=== PATIENT | female | born 2005 | race Caucasian/White ===

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

== ENCOUNTER 2025-02-11 16:37 | Emergency (ER) | payer MEDICAID, SELFPAY ==
[2025-02-11 16:43] VITALS: BP 117/74; PULSE 108; RESP 18; TEMP 36.5; O2SAT 97
--- NOTE | 2025-02-11 18:14 | W.ED.GENAD ---
Discharge Plan Disposition Patient Disposition: Home Condition: Stable Discharge Details Clinical Impression: , Nausea Primary Care Provider: Luz Johnson ED Provider: Harrison Lo [place] Meds and New Rx's Prescriptions: New ondansetron 4 mg tablet,disintegrating 4 mg PO Q8H PRN (Reason: nausea and vomiting) Qty: 10 0RF Continued loratadine [Claritin] 10 mg tablet 10 mg PO DAILY Qty: 60 1RF Patient Comments: not currently taking albuterol sulfate [ProAir HFA] 90 mcg/actuation HFA aerosol inhaler 2 puff IH Q4H PRN (Reason: shortness of breath or wheezing) Qty: 8.5 1RF budesonide-formoterol [Symbicort] 80-4.5 mcg/actuation HFA aerosol inhaler 2 puff inhalation BID Gummies 400 mcg-35 mg- 25 mg-5 mg tablet,chewable PO epinephrine [EpiPen 2-Kenneth] 0.3 mg/0.3 mL auto-injector 0.3 mg IM ONCE Qty: 4 1RF fluoxetine [Prozac] 10 mg capsule See Rx Instructions .ROUTE .COMPLEX Qty: 60 0RF Patient Comments: not currently taking Rx Instructions: 1 capsule by mouth once daily x 14 days; then increase to 2 capsules by mouth once daily Discharge Instructions Instructions: symptoms Discharge Data Discharge Physician: Harrison Lo [facility] General Date/Time Provider Initiated Documentation: 02/11/25 16:53. HPI Narrative: Patient presents to the emergency department stating that she has been nauseous for the last 4 days unable to eat or drink feels dehydrated. Denies any vomiting or diarrhea. Related Data Home Medications ?Medication ?Instructions ?Recorded ?Confirmed albuterol sulfate 90 mcg/actuation 2 puff inhalation Q4H PRN 03/08/20 02/11/25 aerosol inhaler (ProAir HFA) shortness of breath or wheezing #8.5 grams loratadine 10 mg tablet (Claritin) 10 mg PO DAILY #60 tabs 03/08/20 02/11/25 budesonide-formoterol HFA 80 2 puff inhalation BID 09/01/20 02/11/25 mcg-4.5 mcg/actuation aerosol inhaler (Symbicort) epinephrine 0.3 mg/0.3 mL 0.3 mg (0.3 mL) IM ONCE #4 ea 12/27/21 02/11/25 injection, auto-injector (EpiPen 2-Kenneth) fluoxetine 10 mg capsule (Prozac) See Rx Instructions .Route 05/22/22 02/11/25 .COMPLEX #60 caps PNV 153-FA 400 mcg-om3 35 mg-dha tab PO 04/03/23 04/03/23 25 mg-epa 5 mg-fish oil chew tablet ( Gummies) ondansetron 4 mg disintegrating 4 mg PO Q8H PRN nausea and 02/11/25 tablet vomiting #10 tabs Previous Rx's ?Medication ?Instructions ?Recorded albuterol sulfate 90 mcg/actuation 2 puff inhalation Q4H PRN 03/08/20 aerosol inhaler (ProAir HFA) shortness of breath or wheezing #8.5 grams loratadine 10 mg tablet (Claritin) 10 mg PO DAILY #60 tabs 03/08/20 epinephrine 0.3 mg/0.3 mL 0.3 mg (0.3 mL) IM ONCE #4 ea 12/27/21 injection, auto-injector (EpiPen 2-Kenneth) fluoxetine 10 mg capsule (Prozac) See Rx Instructions .Route 05/22/22 .COMPLEX #60 caps ondansetron 4 mg disintegrating 4 mg PO Q8H PRN nausea and 02/11/25 tablet vomiting #10 tabs Allergies Allergy/AdvReac Type Severity Reaction Status Date / Time beef derived (bovine) Allergy Severe Anaphylaxsi Verified 02/11/25 16:49 s peanut Allergy Severe Anaphylaxsi Verified 02/11/25 16:49 s tree nut Allergy Severe Skin Rash Verified 02/11/25 16:49 General Stated Complaint: GenMedical MAYKEL: 3 Review of Systems Narrative: Review of Systems: Constitutional: No fevers, chills, sweats Eye: No recent visual problems ENT: No ear pain, nasal congestion, sore throat Respiratory: No shortness of breath, cough Cardiovascular: No Chest pain, palpitations, syncope Gastrointestinal: No vomiting, diarrhea Genitourinary: No hematuria Bowen/Lymph: Negative for bruising tendency, swollen lymph glands Endocrine: Negative for excessive thirst, excessive hunger Musculoskeletal: No back pain, neck pain, joint pain, muscle pain, decreased range of motion Integumentary: No rash, pruritus, abrasions Neurologic: Alert & oriented X 4 Psychiatric: No anxiety, depression Exam Narrative Exam Narrative: Exam; vitals signs as reported above normal Constitutional; In no acute distress, afebrile General: cooperative, healthy appearing, comfortable and no acute distress HEENT: Head: normal to inspection, no palpable skull fracture and normocephalic atraumatic Eyes: : appearance normal, both eyes and all related structures EOM intact bilaterally Pupils: PERRL : conjunctiva normal Direct ophthalmoscopy: normal light reflex, normal conjunctiva, normal visual acuity Ears: Normal TM, normal external canal Nose: normal no rhinorreha Neck no JVD, supple non tender Neck: normal visual inspection, full ROM and no lymphadenopathy Chest: normal inspection of the chest Respiratory : normal respiratory effort and able to speak in complete sentences no wheezing no rales Cardio Rate: regular rate, rhythm: regular rhythm normal heart sounds S1 and S2 no murmurs, gallops, or rubs GI : normal to inspection, normal bowel sounds, soft, non tender, non distended, no organomegaly Back/Spine/ no CVA tenderness Thoracic/Lumbar Spine: no tenderness or deformities Skin no rashes or lesions Neuro: patient alert oriented x 4 and no meningeal signs, Cranial Nerves: CN's II-XI intact bilaterally, Cognition: normal cognition, Speech: speech normal, Gait: normal gait, Depp tendon reflexes normal 2+ muscle strength 5/5 bilaterally Extremities, no edema, full range of motion, normal strength Course Vital Signs Vital signs: Vital Signs Temperature 36.5 C 02/11/25 16:43 Pulse 108 H 02/11/25 16:43 Respiratory Rate 18 02/11/25 16:43 Blood Pressure 117/74 02/11/25 16:43 Pulse Oximetry 97 02/11/25 16:43 Temperature 36.5 C 02/11/25 16:43 Temperature Source Tympanic 02/11/25 16:43 Pulse 108 H 02/11/25 16:43 Respiratory Rate 18 02/11/25 16:43 Blood Pressure 117/74 02/11/25 16:43 Pulse Oximetry 97 02/11/25 16:43 Oxygen Delivery Method Room Air 02/11/25 16:43 Oxygen Flow Rate 0 02/11/25 16:43 Pain Level 0 02/11/25 16:43 Medical Decision Making MDM: Summary: Patient presents emergency department states she has been nauseous for the last week and although she states she only had sexual intercourse with her boyfriend once in the last month she tested positive for . The rest of the labs were unremarkable she received IV fluids and Zofran with improvement. She will be discharged on Zofran and will go to her OB for care. Data Review Analysis All the data on this patient was reviewed by me including laboratory and imaging studies as well as bedside studies performed by me Independent review of Studies Imaging Lab: Labs show positive for Risk Stratification: Patient with early nausea who will be discharged with follow-up with her OB Differential Diagnosis: 1. 2. Enteritis 3. 4. 5. Consultants: Shared disposition: Patient stands disposition will follow accordingly Impression: Lab Data Lab results reviewed: Yes I reviewed the patient's lab results. PFSH All Active Problems (Updated 02/11/25 @ 20:43 by Harrison Lo MD) Nausea (Acute) (Acute) Loss of biological parent at younger than 18 years of age (Acute) Unresolved grief (Acute) PTSD (post-traumatic stress disorder) (Chronic) With depressive features and non-specific suicidal ideations; PTSD secondary to mom being sick with cancer for many years and then passing in 2014 when Deann was 9 years old Insomnia (Chronic) Moderate persistent asthma (Chronic) Followed by [facility] Peanut allergy (Chronic) Eczema (Chronic) Dysmenorrhea (Chronic) Medical History COVID Family History Mother Breast cancer at age 50 in 2014 Social History Smoking/Tobacco Use Status: Current every day Tobacco Type: e-cigarettes Smoking risk assessment performed?: Yes Alcohol Intake: never Drug use: Occasionally Substance use type: marijuana Housing: house Communication Needs: Corrective Lenses Education Level: high school Details: [employer] Fall 2020 Pets and animals: Yes (2 dogs) Pets and animals: dog(s) Current gender identity: female Seatbelt use: always Do you feel safe at home: Yes ([employer]) Do you feel safe in your relationship?: Yes Additional Social history: dad arley - works in [employer] [place] 1/2 brother Ozzy (dads) in [place] 22 yrs older Coreen has adult daughter & grandchildren History History 1 Para Hx # Term Pregnancies Multiple births Hx # Pregnancies Ectopic pregnancies AB induced Hx Number of Living Children AB spontaneous
[2025-02-11] MEDS: Normal Saline 1,000 ML 1000 ML IV (18:50)
[2025-02-11 19:03] LABS: HCT 38.1 % (36.0-46.0); HGB 13.1 g/dL (11.2-15.7); MCV 80 fL (80-95); RBC 4.74 10^6/uL (3.93-5.22); WBC 10.97 10^3/uL (4.4-10.8)
[2025-02-11 19:04] LABS: MCH 27.6 pg (27.0-33.0); MCHC 34.4 % (32.0-36.0); MPV 11.0 fL (8.0-11.0); Platelet Count 273 10^3/uL (130-400); RDW 12.2 % (11.7-14.6); RDW-SD 35.6 fL
[2025-02-11 19:15] LABS: Albumin 4.5 g/dL (3.4-5.0); Alkaline Phosphatase 81 U/L (46-116); BUN 11 mg/dL (7-18); Bilirubin, Total 0.4 mg/dL (0.2-1.0); Calcium 9.4 mg/dL (8.5-10.1); Estimated GFR 137.62 (mL/min/1.73m2); Glucose 82 mg/dL (74-106); Sodium 138 mmol/L (136-145); Total Protein 8.8 g/dL (6.4-8.2)
[2025-02-11 19:16] LABS: ALT 22 U/L (14-59); AST 18 U/L (15-37); Anion Gap 15.3 mmol/L (3-11); CO2 21.7 mmol/L (21.0-32.0); Chloride 101 mmol/L (98-107); Lipase 44 U/L (<78); Potassium 3.2 mmol/L (3.5-5.1)
[2025-02-11 19:17] VITALS: RESP 21
[2025-02-11] MEDS: Ondansetron 4 MG/2 ML VIAL IVP (19:38)
[2025-02-11 19:55] LABS: Glucose Negative (Negative)
[2025-02-11 19:56] LABS: C & S Indicated? No
[2025-02-11 20:57] VITALS: BP 116/65; TEMP 36.8; O2SAT 99
== END 2025-02-11 20:58 | disposition home or self-care (01) ==
PROVIDERS: Emergency Provider Emergency Medicine Emergency Medical Services; PCP Student in an Organized Health Care Education/Training Program
DX: O26.891 Other specified pregnancy related conditions, first trimester (principal); R11.2 Nausea with vomiting, unspecified; O99.331 Smoking (tobacco) complicating pregnancy, first trimester; F17.290 Nicotine dependence, other tobacco product, uncomplicated; Z3A.01 Less than 8 weeks gestation of pregnancy
CPT/HCPCS: 80053; 81025; 82962; 83690; 96361; 96374; 99284; 81003; 81015; 85025; J2405

== ENCOUNTER 2025-03-01 17:20 | Day surgery (SDC) | payer MEDICAID, SELFPAY ==
[2025-03-01] VITALS (43 sets, daily range): BP systolic 93–137; BP diastolic 44–91; PULSE 71–139; RESP 9–24; TEMP 36.3–37.3; O2SAT 99–100; BMI 26.6
--- NOTE | 2025-03-01 17:40 | W.ED.GENAD ---
Discharge Plan Disposition Patient Disposition: Admit to [facility] Condition: Stable Discharge Details Clinical Impression: Retained products of conception following Primary Care Provider: Luz Johnson ED Provider: Jane Marin Home Meds and New Rx's Prescriptions: No Action loratadine [Claritin] 10 mg tablet 10 mg PO DAILY Qty: 60 1RF Patient Comments: not currently taking albuterol sulfate [ProAir HFA] 90 mcg/actuation HFA aerosol inhaler 2 puff IH Q4H PRN (Reason: shortness of breath or wheezing) Qty: 8.5 1RF budesonide-formoterol [Symbicort] 80-4.5 mcg/actuation HFA aerosol inhaler 2 puff inhalation BID Gummies 400 mcg-35 mg- 25 mg-5 mg tablet,chewable PO epinephrine [EpiPen 2-Kenneth] 0.3 mg/0.3 mL auto-injector 0.3 mg IM ONCE Qty: 4 1RF fluoxetine [Prozac] 10 mg capsule See Rx Instructions .ROUTE .COMPLEX Qty: 60 0RF Patient Comments: not currently taking Rx Instructions: 1 capsule by mouth once daily x 14 days; then increase to 2 capsules by mouth once daily ondansetron 4 mg tablet,disintegrating 4 mg PO Q8H PRN (Reason: nausea and vomiting) Qty: 10 0RF HPI General Date/Time Provider Initiated Documentation: 03/01/25 17:26. HPI Narrative: The patient is a 19-year-old female who had an elective one week ago at 8 weeks into her who comes to the Emergency Department for abdominal cramping and heavy bleeding. Reports after the which she received a pill, she was spotting but this afternoon around 3:00, she got home from work, had a bowel movement and large chunks of blood came out. She has reported heavy bleeding since. Reports she has used one super tampon and switched to adult diaper because of heavy bleeding. Reports she's feeling lightheaded with this without syncopal episode. Reports this is her 2nd and has a healthy 1-year-old son at home. Reports at 4:00, she took 600 mg of Ibuprofen which hasn't helped much. [facility]. Denies fever with this. Denies urinary symptoms. Denies chest pain or shortness of breath. Related Data Home Medications ?Medication ?Instructions ?Recorded ?Confirmed albuterol sulfate 90 mcg/actuation 2 puff inhalation Q4H PRN 03/08/20 03/01/25 aerosol inhaler (ProAir HFA) shortness of breath or wheezing #8.5 grams loratadine 10 mg tablet (Claritin) 10 mg PO DAILY #60 tabs 03/08/20 03/01/25 budesonide-formoterol HFA 80 2 puff inhalation BID 09/01/20 03/01/25 mcg-4.5 mcg/actuation aerosol inhaler (Symbicort) epinephrine 0.3 mg/0.3 mL 0.3 mg (0.3 mL) IM ONCE #4 ea 12/27/21 03/01/25 injection, auto-injector (EpiPen 2-Kenneth) fluoxetine 10 mg capsule (Prozac) See Rx Instructions .Route 05/22/22 03/01/25 Held on 03/01/25. .COMPLEX #60 caps Instructions: Pt Stopped/Never Started PNV 153-FA 400 mcg-om3 35 mg-dha tab PO 04/03/23 04/03/23 25 mg-epa 5 mg-fish oil chew tablet ( Gummies) Held on 03/01/25. Instructions: Prescription Finished ondansetron 4 mg disintegrating 4 mg PO Q8H PRN nausea and 02/11/25 03/01/25 tablet vomiting #10 tabs Previous Rx's ?Medication ?Instructions ?Recorded albuterol sulfate 90 mcg/actuation 2 puff inhalation Q4H PRN 03/08/20 aerosol inhaler (ProAir HFA) shortness of breath or wheezing #8.5 grams loratadine 10 mg tablet (Claritin) 10 mg PO DAILY #60 tabs 03/08/20 epinephrine 0.3 mg/0.3 mL 0.3 mg (0.3 mL) IM ONCE #4 ea 12/27/21 injection, auto-injector (EpiPen 2-Kenneth) fluoxetine 10 mg capsule (Prozac) See Rx Instructions .Route 05/22/22 Held on 03/01/25. 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 Exam Narrative Exam Narrative: General appearance: The patient is alert, has no immediate need for airway protection and no signs of toxicity. HEENT: Pupils are round, equal and reactive. Oral mucosal membranes are moist. Respiratory: There are no retractions. Lungs are clear to auscultation. Cardiovascular: Regular in rate and rhythm. Radial pulses are intact and equal. Gastrointestinal: The abdomen is soft and nondistended with normal bowel sounds. She has suprapubic tenderness to palpation without rebound tenderness, guarding or rigidity. Neurological: The patient is alert, awake and oriented x 3. Skin: Warm and dry. She is pale. Back: No CVA tenderness is noted to palpation bilaterally. Extremities: No lower extremity edema or calf tenderness is noted to palpation bilaterally. Course Vital Signs Vital signs: Vital Signs Temperature 36.6 C 03/01/25 17:23 Pulse 99 H 03/01/25 17:23 Respiratory Rate 18 03/01/25 17:23 Blood Pressure 135/70 03/01/25 17:23 Pulse Oximetry 100 03/01/25 17:23 Temperature 36.6 C 03/01/25 17:23 Temperature Source Tympanic 03/01/25 17:23 Pulse 99 H 03/01/25 17:23 Respiratory Rate 18 03/01/25 17:23 Blood Pressure 135/70 03/01/25 17:23 Blood Pressure Position Sitting 03/01/25 17:23 Pulse Oximetry 100 03/01/25 17:23 Oxygen Delivery Method Room Air 03/01/25 17:23 Oxygen Flow Rate 0 03/01/25 17:23 Pain Level 9 03/01/25 17:27 Medical Decision Making I told the patient and her partner of plan for blood work, IV fluids and IV pain medication. She reports that she has taken 600 mg of Ibuprofen prior to arrival so I ordered only 15 mg Toradol. Blood work is back and it shows that she is anemic but not critically anemic. Nevertheless, I spoke with Ambulatory Care Nurse endodontics dentist, Dr. Stallings who is now on her way to evaluate the patient. I did update the patient and her partner regarding this. In the meantime, she has been passing large bright red clots continuously. Dr. Stallings has evaluated the patient. Recommends repeat IV fluids and repeat CBC. Repeat CBC shows that her H&H has dropped. Dr. Love recommended pRBCs so this has been ordered for her. Consent to be obtained by OB. Ultimately, plan is to bring the patient to the OR tonight for suspicion of retained products of conception. The patient agrees with this plan. PFSH All Active Problems (Updated 03/01/25 @ 19:46 by Jane Marin DO) Retained products of conception following (Acute) Nausea (Acute) (Acute) Loss of biological parent at younger than 18 years of age (Acute) Unresolved grief (Acute) PTSD (post-traumatic stress disorder) (Chronic) With depressive features and non-specific suicidal ideations; PTSD secondary to mom being sick with cancer for many years and then passing in 2014 when Deann was 9 years old Insomnia (Chronic) Moderate persistent asthma (Chronic) Followed by [facility] [place] [place] Peanut allergy (Chronic) Eczema (Chronic) Dysmenorrhea (Chronic) Medical History COVID Family History Mother Breast cancer at age 50 in 2014 Social History Smoking/Tobacco Use Status: Current every day Tobacco Type: e-cigarettes Smoking risk assessment performed?: Yes Alcohol Intake: never Drug use: Occasionally Substance use type: marijuana Housing: house Communication Needs: Corrective Lenses Education Level: high school Details: [employer] [facility] Pets and animals: Yes (2 dogs) Pets and animals: dog(s) Current gender identity: female Seatbelt use: always Do you feel safe at home: Yes ([employer]) Do you feel safe in your relationship?: Yes Additional Social history: dad tubbs - works in [employer] [place] 1/2 brother Ozzy (dads) in [place] 22 yrs older Coreen has adult daughter & grandchildren History History 1 Para Hx # Term Pregnancies Multiple births Hx # Pregnancies Ectopic pregnancies AB induced Hx Number of Living Children AB spontaneous
[2025-03-01 17:43] LABS: Abs Immature Grans 0.03 10^3/uL (0.0-0.06); HCT 28.3 % (36.0-46.0); HGB 9.6 g/dL (11.2-15.7); Immature Grans % 0.3 %; MCH 28.0 pg (27.0-33.0); MCHC 33.9 % (32.0-36.0); MCV 83 fL (80-95); MPV 10.7 fL (8.0-11.0); Platelet Count 191 10^3/uL (130-400); RBC 3.43 10^6/uL (3.93-5.22); RDW 13.2 % (11.7-14.6); RDW-SD 39.8 fL; WBC 10.99 10^3/uL (4.4-10.8)
[2025-03-01] MEDS: Ketorolac 15 MG/ML VIAL IVP (17:48)
[2025-03-01] MEDS: Normal Saline 1,000 ML 1000 ML IV ×2 (17:48→19:10)
[2025-03-01 18:20] LABS: ALT 20 U/L (14-59); AST 19 U/L (15-37); Albumin 3.8 g/dL (3.4-5.0); Alkaline Phosphatase 63 U/L (46-116); Anion Gap 10.9 mmol/L (3-11); BUN 9 mg/dL (7-18); Bilirubin, Total 0.3 mg/dL (0.2-1.0); CO2 23.1 mmol/L (21.0-32.0); Calcium 8.7 mg/dL (8.5-10.1); Chloride 102 mmol/L (98-107); Estimated GFR 145.22 (mL/min/1.73m2); Glucose 97 mg/dL (74-106); Potassium 3.2 mmol/L (3.5-5.1); Sodium 136 mmol/L (136-145); Total Protein 7.3 g/dL (6.4-8.2)
[2025-03-01 19:20] LABS: Abs Immature Grans 0.03 10^3/uL (0.0-0.06); HCT 23.1 % (36.0-46.0); HGB 7.8 g/dL (11.2-15.7); Immature Grans % 0.3 %; MCH 28.1 pg (27.0-33.0); MCHC 33.8 % (32.0-36.0); MCV 83 fL (80-95); MPV 10.8 fL (8.0-11.0); Platelet Count 178 10^3/uL (130-400); RBC 2.78 10^6/uL (3.93-5.22); RDW 13.2 % (11.7-14.6); RDW-SD 40.0 fL; WBC 10.82 10^3/uL (4.4-10.8)
--- NOTE | 2025-03-01 19:37 | ANES.PREOP_ITS ---
General Info Date of Service Date Performed: 03/01/25 Height: 5 ft 5 in Weight: 72.575 kg Body Mass Index (BMI): 26.6 Meds Allergies and Home Medications Allergies Allergy/AdvReac Type Severity Reaction Status Date / Time beef derived (bovine) Allergy Severe Anaphylaxsi Verified 03/01/25 17:26 s peanut Allergy Severe Anaphylaxsi Verified 03/01/25 17:26 s tree nut Allergy Severe Skin Rash Verified 03/01/25 17:26 Home Medication ?Medication ?Instructions ?Recorded albuterol sulfate 90 mcg/actuation 2 puff inhalation Q 4H PRN 03/08/20 aerosol inhaler (ProAir HFA) shortness of breath or wh eezing #8.5 grams loratadine 10 mg tablet (Claritin) 10 mg PO DAILY #60 tabs 03/08/20 budesonide-formoterol HFA 80 2 puff inhalation BID 10/17 mcg-4.5 mcg/actuation aerosol inhaler (Symbicort) epinephrine 0.3 mg/0.3 mL 0.3 mg (0.3 mL) IM ONCE #4 e a 12/27/21 injection, auto-injector (EpiPen 2-Kenneth) fluoxetine 10 mg capsule (Prozac) See Rx Instructions .Route 05/22/22 Held on 03/01/25. .COMPLEX #60 caps Instructions: Pt Stopped/Never Started PNV 153-FA 400 mcg-om3 35 mg-dha tab PO 04/03/23 25 mg-epa 5 mg-fish oil chew tablet ( Gummies) Held on 03/01/25. Instructions: Prescription Finished ondansetron 4 mg disintegrating 4 mg PO Q8H PRN nausea and 02/11/25 tablet vomiting #10 tabs Current Visit Medications: Current Medications Generic Name Dose Route Start Last Admin Trade Name Freq PRN Reason Stop Dose Admin Sodium Chloride 1,000 mls @ 1,000 mls/hr 03/01/25 19:11 03/01/25 19:10 Saline 1000ml Bag IV 03/01/25 20:10 1,000 mls/hr BOLUS ONE Administration PFSH Active Problems Active Problems: Problem Status Onset Code Nausea Acute R11.0 Acute Z34.90 Loss of biological parent at younger than 18 years of age Acute Z63.4 Unresolved grief Acute F43.21 PTSD (post-traumatic stress disorder) Chronic F43.10 Insomnia Chronic G47.00 Moderate persistent asthma Chronic J45.40 Sprain of ulnar collateral ligament of metacarpophalangeal (MCP) joint of left thumb Resolved 08/23/19 S63.642A Peanut allergy Chronic Z91.010 Eczema Chronic L30.9 Dysmenorrhea Chronic N94.6 Medical History Medical History COVID Tobacco Smoking/Tobacco Use Status: Current every day Tobacco Type: e-cigarettes Passive smoking exposure: Yes (Father) Alcohol Alcohol Intake: never Substance Use Substance use: Occasionally Substance use type: marijuana Prental History History 2 2 Para 1 Hx # Term Pregnancies 1 Multiple births Hx # Pregnancies Ectopic pregnancies AB induced 1 Hx Number of Living Children 1 AB spontaneous Vital Signs and Lab Results Vital Signs Most Recent Vital Signs in EMR: Most Recent Vital Signs Temp Pulse Resp BP Pulse Ox 36.6 C 99 H 18 135/70 100 03/01/25 17:23 03/01/25 17:23 03/01/25 17:23 03/01/25 17:23 03/01/25 17:23 Lab Results 03/01/25 19:16 03/01/25 17:35 Blood Type / Crossmatch: 2 Antibody Screen NEGATIVE Today Complete Blood Count: 2 WBC, (4.4-10.8) 10.99 10^3/uL H Today, 17:35 RBC, (3.93-5.22) 3.43 10^6/uL L Today, 17:35 Hgb, (11.2-15.7) 7.8 g/dL L Today, 19:16 Hct, (36.0-46.0) 28.3 % L Today, 17:35 Plt Count, (130-400) 191 10^3/uL Today, 17:35 Complete Metabolic Panel: 2 Sodium, (136-145) 136 mmol/L Today, 17:35 Potassium, (3.5-5.1) 3.2 mmol/L L Today, 17:35 Chloride, (98-107) 102 mmol/L Today, 17:35 Carbon Dioxide, (21.0-32.0) 23.1 mmol/L Today, 17:35 BUN, (7-18) 9 mg/dL Today, 17:35 Creatinine, (0.55-1.02) 0.4 mg/dL L Today, 17:35 Est GFR (CKD-EPI 2020), (mL/min/1.73m2) 145.22 Today, 17:35 Calcium, (8.5-10.1) 8.7 mg/dL Today, 17:35 Albumin, (3.4-5.0) 3.8 g/dL Today, 17:35 Glucose, (74-106) 97 mg/dL Today, 17:35 Liver Function Panel: 2 ALT, (14-59) 20 U/L Today, 17:35 AST, (15-37) 19 U/L Today, 17:35 Pancreas Panel: 2 Lipase, (<78) 44 U/L 02/11/25, 17:45 Panel: 2 Beta HCG, Quant, (1-3) 91910 mIU/mL H Today, 17:35 Anesthesia Assessment and Plan Anesthesia History Personal History: No History of Anesthesia Complications Family History: No Family History of Anesthesia Complications Exercise Tolerance Exercise Tolerance: Metabolic Equivalents>4 Pertinent Negatives Pertinent Negatives: No Symptoms of GERD, No Major Cardiovascular Symptoms or Complaints and No Major Pulmonary Symptoms or Complaints Cardiac & Pulmonary Exam Cardiac Exam: Normal S1/S2 Heart Sounds Pulmonary Exam: Clear Bilateral Breath Sounds Implantable Cardiac Device Does patient have a Pacemaker or an ICD?: No Airway Exam Known Difficult Airway: No Mallampati Class: 2 Mouth Opening: Normal (> 3cm) Thyromental Distance: Greater than 3 cm Neck Range of Motion: Full ROM Neck Circumference: Normal Teeth Condition: Normal Dentition ASA Classification ASA Score: ASA 2 Emergency Case?: No NPO Status NPO Status: NPO Clear Liquids>2 hours and NPO Small Non-Fatty Meal >6 hours Status Status: Other (retained products of conception) Anesthesia Plan Resuscitation Status: Full Code Anesthesia Technique: General Anesthesia Airway Planned: Natural Airway Monitors Used: Standard Monitors
[2025-03-01 19:42] LABS: Poikilocytes 1+
--- NOTE | 2025-03-01 19:44 | W.GYNCONSULT ---
Date of service: 03/01/25 Time of Service: 19:44 Assessment and Plan Assessment and plan (1) Retained products of conception following : Status: Acute Assessment and plan: with retained POC s/[facility] Significant drop in Hb so will plan to transfuse 1U PRBC - pt consented. Unable to evacuate all POC through pelvic exam and the pt opted for sedation and surgical removal. Risks reviewed with the pt and all questions answered. History of Present Illness History of Present Illness Chief Complaint: vaginal bleeding Narrative: Pt is a who took mife/miso [facility] last sunday (02/23). She says she started bleeding overnight and passed some clots and had some cramping and then it decreased to minimal bleeding for the past week until this afternoon. She was having a BM around 3pm and felt a little crampy but afterwards she started passing large clots. She says she sat on the toilet for a few hours before coming to the ED. She had an uncertain LMP and irregular periods but she had an ultrasound done prior to the and says she was 8.2wks then and took the medication at 8.6wks. She says she is feeling a bit dizzy now. Review of Systems Genitourinary Genitourinary: Reports system reviewed and no additional complaints, except as documented PFSH All Active Problems Retained products of conception following (Acute) Dysmenorrhea (Chronic) Eczema (Chronic) Peanut allergy (Chronic) Moderate persistent asthma (Chronic) Followed by [facility] Insomnia (Chronic) PTSD (post-traumatic stress disorder) (Chronic) With depressive features and non-specific suicidal ideations; PTSD secondary to mom being sick with cancer for many years and then passing in 2014 when Deann was 9 years old Loss of biological parent at younger than 18 years of age (Acute) Medical History (Updated 03/01/25 @ 19:55 by Donna Yeh MD) Sprain of ulnar collateral ligament of metacarpophalangeal (MCP) joint of left thumb (08/23/19) COVID Family History Mother Breast cancer at age 50 in 2014 Social History Smoking/Tobacco Use Status: Current every day Tobacco Type: e-cigarettes Smoking risk assessment performed?: Yes Alcohol Intake: never Drug use: Occasionally Substance use type: marijuana Housing: house Communication Needs: Corrective Lenses Education Level: high school Details: [employer] fall Pets and animals: Yes (2 dogs) Pets and animals: dog(s) Current gender identity: female Seatbelt use: always Do you feel safe at home: Yes ([employer]) Do you feel safe in your relationship?: Yes Additional Social history: anjum tubbs - works in [employer] / brother Ozzy (anjums) in [place] 22 yrs older Coreen has adult daughter & grandchildren History History 2 Para 1 Hx # Term Pregnancies 1 Multiple births Hx # Pregnancies Ectopic pregnancies AB induced 1 Hx Number of Living Children 1 AB spontaneous Exam Const General: cooperative, no acute distress and other (pale) HENMT Head: normocephalic and atraumatic Ears: hearing grossly normal bilaterally Resp Effort & Inspection: normal respiratory effort and able to speak in complete sentences External Female Exam: normal external appearance and normal appearance of the urethra Other: There was a large amount of blood and clots in the vagina and in the cervix. These were evacuated using a ringed-forceps. There were some pieces of products of conception found within the cervix that were removed. Attempts were made to remove as much as possible. Then transabdominal ultrasound was done to check for further retained products and there was e/o remaining POC in the lower uterine segment. One further attempt was made to evacuate it but this was aborted because the patient was uncomfortable. She was offered surgical evacuation first and then eventually opted for this method. Neuro General: patient alert and patient awake Psych Appearance: grossly normal Mental Status: mental status grossly normal Speech and Movement: speech and movement normal Affect: normal affect Attitude: cooperative Thought Process: normal Thought Content: normal Results Last Vital Signs Temp 97.9 F 03/01/25 17:23 Pulse 99 H 03/01/25 17:23 Resp 18 03/01/25 17:23 BP 135/70 03/01/25 17:23 Pulse Ox 100 03/01/25 17:23 Labs 03/01/25 19:16 03/01/25 17:35 Labs: Laboratory Results - last 24 hr 03/01/25 03/01/25 03/01/25 17:26 17:35 19:16 WBC 10.99 H 10.82 H RBC 3.43 L 2.78 L Hgb 9.6 L 7.8 L Hct 28.3 L 23.1 L MCV 83 83 MCH 28.0 28.1 MCHC 33.9 33.8 RDW 13.2 13.2 Plt Count 191 178 MPV 10.7 10.8 Immature Gran % 0.3 0.3 Neutrophils % 77.0 78.5 Lymphocytes % 16.6 15.9 Monocytes % 5.0 4.5 Eosinophils % 0.8 0.6 Basophils % 0.3 0.2 Nucleated RBC % 0.0 0.0 Absolute Neutrophils 8.46 H 8.49 H Absolute Lymphocytes 1.82 1.72 Absolute Monocytes 0.55 0.49 Absolute Eosinophils 0.09 0.06 Absolute Basophils 0.03 0.02 RBC Morphology See Below Poikilocytosis 1+ Sodium 136 Potassium 3.2 L Chloride 102 Carbon Dioxide 23.1 Anion Gap 10.9 BUN 9 Creatinine 0.4 L Est GFR (CKD-EPI 2020) 145.22 Glucose 97 Calcium 8.7 Total Bilirubin 0.3 AST 19 ALT 20 Alkaline Phosphatase 63 Total Protein 7.3 Albumin 3.8 Beta HCG, Quant 23899 H ABO/Rh Cancelled A Positive Antibody Screen NEGATIVE WW Pocus Exam Exam testing Date/Time of Exam: Date of exam: 03/01/2025 Time of exam: 7:59 pm SAB Retained POC: Yes Coding for Transabdominal exam: Complete exam
[2025-03-01] MEDS: Lactated Ringers 1,000 ML 30 ML IV (20:15)
[2025-03-01] MEDS: Bupivacaine 0.25% Pres-Free 30 ML VIAL (20:27)
[2025-03-01] MEDS: DOXYCYCLINE 100 MG in Normal Saline 100 ML IVPB (20:29)
--- NOTE | 2025-03-01 20:29 | POCSPONT_PTH ---
PATIENT: Deann Schwartz LOC: [facility] U#:[id number] AGE/SX: 19/F ROOM: RE03/01/[address]: Donna Styles MD : 2005 BED: DIS: 03/01/2025 SPEC #: [id number] RECD: 03/02/25 13:36 STATUS: [place] #: [id number] WILLIAM: 03/01/25 20:[address]: Donna Styles DEPT: Surgical Specimen RECD BY: Adela Barrientos ENTERED: 03/02/25 13:41 SP TYPE: POCSPONT OTHR DR: Luz Johnson MD Tissues: 1 - ,SPONTANEOUS Procedures: GROSS AND MICRO LEVEL 4 IMMUNOPEROXIDASE STAIN Comments: [id number] (SENT FRESH PER DONNA STYLES)
--- NOTE | 2025-03-01 20:47 | ROE_ITS ---
Operative Note Operative Note PRE-OP DIAGNOSIS: vaginal bleeding, retained POC POST-OP DIAGNOSIS: same PROCEDURE: Suction D&C SURGEON: Donna Yeh Refer to Anesthesia Record ESTIMATED BLOOD LOSS: 300 COMPLICATIONS: None Patient was transported to: PACU Patient's condition: stable Indications: with vaginal bleeding and retained POC 1wk s/p taking mife/miso for a TOP @ 8.6wks GA. Significant drop in Hb indication anemia and requiring 1U PRBC started immediately prior to entering the OR. Findings: Retained POC in the uterus. Procedure Description: After informed consent was signed the patient was taken to the operating room and given General room air anesthesia. She was prepped and draped in the dorsal lithotomy position in the [facility]. A time out was performed. Her bladder was drained of urine if not done immediately prior to entrance to the OR. Exam under anesthesia revealed normal external genitalia, vagina normal for age and a normal sized uterus. A speculum was placed into the vagina to reveal the cervix after evacuating a large amount of blood clots. The anterior lip of the cervix was grasped with a single tooth tenaculum. A paracervical block was given with 6ml of 0.25% marcaine. The cervix was dilated. The suction device was assembled and turned on. The uterine cavity was gently suctioned to remove the products of c onception. A sharp curettage revealed no further significant tissue and there was a gritty texture in all four quadrants of the uterine cavity. There was minimal bleeding and the uterus was noted to be firm. The tenaculum was removed from the cervix with good hemostasis after pressure was applied. The speculum was removed from the vagina. The patient was placed back into the supine position. She was moved to the stretcher and taken to the recovery room in stable condition. Date of Procedure: 03/01/25
--- NOTE | 2025-03-01 21:04 | W.ANESPOSTOP ---
Postoperative Evaluation Date, Time and Location Date Performed: 03/01/25 Time Performed: 21:00 Patient Location: PACU Vital Signs Most Recent Imported Vital Signs: Most Recent Vital Signs Temp Pulse Resp BP Pulse Ox 36.7 C 80 16 99/67 L 100 03/01/25 20:49 03/01/25 20:56 03/01/25 20:56 03/01/25 20:56 03/01/25 20:56 Pain Score Most Recent Pain Score: Most Recent Pain Score Pain Level 6 03/01/25 17:48 Assessment Mental Status: Awake (Alert & Oriented to Patient Baseline) Airway and Respiratory Function: Patent airway with normal (patient baseline) respiratory exam Cardiovascular Function: Hemodynamically Stable Hydration Status: Adequately Hydrated Nausea & Vomiting: No Nausea or Vomiting Pain: Pain is tolerable per patient Peripheral Nerve Block: Patient did not receive a nerve block
== END 2025-03-01 23:38 | disposition home or self-care (01) ==
LOC: ER 20:05 → SUR 20:50 → MS 21:53
PROVIDERS: Emergency Provider Emergency Medicine; PCP Student in an Organized Health Care Education/Training Program; Visit Provider Obstetrics & Gynecology
PROC: 10E0XZZ Delivery of Products of Conception, External Approach (ICD-10-PCS; CPT 59812; principal; 2025-03-01 19:50)
DX: O07.1 Delayed or excessive hemorrhage following failed attempted termination of pregnancy (principal); D62 Acute posthemorrhagic anemia; J45.40 Moderate persistent asthma, uncomplicated; Z79.899 Other long term (current) drug therapy; Z3A.08 8 weeks gestation of pregnancy
CPT/HCPCS: 59812; 36430; 80053; 86850; 86900; 86901; 86920; 88305; 96361; 96374; 99285; 84702; 85025; 88361; J0665; J1885; J2003; J2250; J2704; P9016

== ENCOUNTER 2025-07-03 17:21 | Emergency (ER) | payer MEDICAID, SELFPAY ==
[2025-07-03 17:34] VITALS: BP 120/78; PULSE 97; RESP 20; TEMP 36.8; O2SAT 97
[2025-07-03] MEDS: Amoxicillin 875/Clav. 125 TAB PO (18:10)
[2025-07-03] MEDS: Ibuprofen 400 MG TAB PO (18:11)
[2025-07-03] MEDS: Diph,Pertuss(Acell),Tet Vac/Pf 0.5 ML SYR IM (18:11)
[2025-07-03] MEDS: Acetaminophen 500 MG TAB 1000 MG PO (18:11)
[2025-07-03] MEDS: Lidocaine/Epinephri/Tetracaine Topical Gel 3 ML TP (18:15)
--- NOTE | 2025-07-03 18:57 | ED.GENADUL_ITS ---
Discharge Plan Disposition Patient Disposition: Home Condition: Stable Discharge Details Clinical Impression: Dog bite of face Primary Care Provider: Luz Johnson ED Provider: Thomas Burris Home Meds and New Rx's Prescriptions: New amoxicillin-pot clavulanate 875-125 mg tablet 1 tab PO BID 10 Days Qty: 20 0RF mupirocin [Centany] 2 % ointment 1 applic topical TID Qty: 15 0RF No Action epinephrine [EpiPen 2-Kenneth] 0.3 mg/0.3 mL auto-injector 0.3 mg IM ONCE Qty: 4 1RF ferrous sulfate [Feosol] 325 mg (65 mg iron) tablet 325 mg PO BID Qty: 180 0RF Discharge Instructions Instructions: Amoxicillin and Clavulanate, Mupirocin, Animal Bites ED Additional Instructions: You were seen in the emergency department for the dog bite to your face, we updated your tetanus and started you on Augmentin to prevent infection. I also sent a prescription for topical mupirocin to apply 2-3 times per day for the first 2 to 3 days and then just keep the wound clean and dry. We did loosely approximate the flap for cosmetic purposes with Steri-Strips which should fall off on their own in 1 to 2 weeks. I have had our staff send an urgent referral for [facility] in case your wound is cosmetically not pleasing and they may be able to revise it at a later date. Please take Tylenol and ibuprofen for pain and return for any signs of severe worsening of infection like increasing swelling and redness and drainage of pus from the area, fever. Stand Alone Forms: Portal Information Referrals: [facility] [Outside] Referral Note: PLASTICS Luz Johnson MD [Primary Care Provider, Pediatrics Medical] Discharge Data Discharge Date/Time-TO BE ENTERED AT DEPARTURE: 07/03/25 19:20 HPI General Date/Time Provider Initiated Documentation: 07/03/25 17:45 . HPI Narrative: 20 year-old female presents to ED today by POV/ambulating with a chief complaint of dog bite to L face- their family dog bit her, has been nippy with her in the past, shots UTD for rabies on the dog with onset just prior to arrival. Quality described as a few punctures with one irregular tear to L cheek, no radiation to eye involvement, uncontrolled bleeding, other injuries. Severity is described as moderate. Palliating factors include simple bandages with relief of bleeding. Provoking factors include nothing specific. Events leading up to the incident/Associated Symptoms: Patient unsure of her last Tdap update. Patient not anticoagulated. Related Data Home Medications ?Medication ?Instructions ?Recorded ?Confirmed epinephrine 0.3 mg/0.3 mL 0.3 mg (0.3 mL) IM ONCE #4 e a 12/27/21 07/06/25 injection, auto-injector (EpiPen 2-Kenneth) ferrous sulfate 325 mg (65 mg 325 mg PO BID #180 tabs 03/06/25 07/06/25 iron) tablet (Feosol) amoxicillin 875 mg-potassium 1 tab PO BID 10 days #20 tabs 07/03/25 07/06/25 clavulanate 125 mg tablet mupirocin 2 % topical ointment 1 applic topical TID #1 5 grams 07/03/25 07/06/25 (Centany) Previous Rx's ?Medication ?Instructions ?Recorded epinephrine 0.3 mg/0.3 mL 0.3 mg (0.3 mL) IM ONCE #4 e a 12/27/21 injection, auto-injector (EpiPen 2-Kenneth) ferrous sulfate 325 mg (65 mg 325 mg PO BID #180 tabs 03/06/25 iron) tablet (Feosol) amoxicillin 875 mg-potassium 1 tab PO BID 10 days #20 tabs 07/03/25 clavulanate 125 mg tablet mupirocin 2 % topical ointment 1 applic topical TID #1 5 grams 07/03/25 (Centany) Allergies Allergy/AdvReac Type Severity Reaction Status Date / Time beef derived (bovine) Allergy Severe Anaphylaxsi Verified 07/06/25 10:38 s peanut Allergy Severe Anaphylaxsi Verified 07/06/25 10:38 s tree nut Allergy Severe Skin Rash Verified 07/06/25 10:38 General Stated Complaint: Laceration MAYKEL: 4 Review of Systems All systems reviewed & are unremarkable except as noted in HPI and below Exam Narrative Exam Narrative: GENERAL APPEARANCE: Well-nourished, non-toxic, awake and alert, atraumatic, no acute distress. SKIN: Warm, pink, dry, 3 cm curvilinear irregular flap laceration to left cheek with 2 other minor pinpoint punctures to the left cheek not through and through, scant oozing of blood, no foreign bodies visualized HEAD: Normocephalic, atraumatic, normal hair distribution for gender/age. EYES: Normal conjunctiva, no exudates on lids/lashes. ENT: Nares patent, no circumoral cyanosis, no facial swelling NECK: Supple, trachea midline, painless cervical ROM. LUNGS/CHEST: Non-labored respirations, normal A/P diameter, symmetrical expansion, no chest wall deformity HEART (CV/PV): No peripheral edema, no JVD. ABDOMEN: Soft, non-distended, no guarding. MSK: Normal ROM, no swelling/deformity to bilateral UEs or LEs, moving all extremities without weakness, no cyanosis, spine midline without tenderness, n ormal curvature. NEURO: Mental Status AAOx4 - alert to person, place, time, events No facial droop, no forehead involvement. Motor: No focal weakness Sensory: sensation intact to light touch globally. Gait normal: patient ambulated without ataxia into ED room. PSYCH: euthymic, cooperative, pleasant, appropriate speech Course Vital Signs Vital signs: Vital Signs Temperature 36.8 C 07/03/25 17:34 Pulse 97 H 07/03/25 17:34 Respiratory Rate 20 07/03/25 17:34 Blood Pressure 120/78 07/03/25 17:34 Pulse Oximetry 97 07/03/25 17:34 Temperature 36.8 C 07/03/25 17:34 Pulse 97 H 07/03/25 17:34 Respiratory Rate 20 07/03/25 17:34 Blood Pressure 120/78 07/03/25 17:34 Blood Pressure Position Sitting 07/03/25 17:34 Pulse Oximetry 97 07/03/25 17:34 Oxygen Delivery Method Room Air 07/03/25 17:34 Oxygen Flow Rate 0 07/03/25 17:34 Pain Level 6 07/03/25 18:11 Procedure Laceration Laceration 1: Provider that performed the procedure: Thomas Burris Standard Time Out Performed: No Patient Consented: Verbally Site: face Side (If applicable): left Description: flap and irregular Depth: simple, single layer Local anesthetic: LET(lidocaine epinephrine tetracaine) Amount of anesthesia used (mL): 3 Pre-repair:: wound explored, irrigated extensively and deep structures intact Skin layer closed with: other (Steri-Strip x3) Complications: None Medical Decision Making This dictation utilizes [id number] dictation software and may contain unedited grammatical errors. 20 year-old female presents to ED today by POV/ambulating with a chief complaint of dog bite to L face- their family dog bit her, has been nippy with her in the past, shots UTD for rabies on the dog with onset just prior to arrival. Quality described as a few punctures with one irregular tear to L cheek, no radiation to eye involvement, uncontrolled bleeding, other injuries. Severity is described as moderate. Palliating factors include simple bandages with relief of bleeding. Provoking factors include nothing specific. Events leading up to the incident/Associated Symptoms: Patient unsure of her last Tdap update. Patients' medical history: Noncontributory. Family and social history: Noncontributory. Pertinent exam findings / vital signs include 3 cm curvilinear irregular flap laceration to left cheek with 2 other minor pinpoint punctures to the left cheek not through and through, scant oozing of blood, no foreign bodies visualized, no other injury, no severe facial swelling or bruising, no difficulty swallowing. Differential / pathologies of concern include dog bite. Diagnostic studies of: - None. Interventions of: - Tdap updated, started Augmentin, given Tylenol and ibuprofen and let gel topically prior to Steri-Strip repair. ED Course/Assessment/Plan: 20-year-old female has irregular laceration from dog bite to her left cheek with 2 pinpoint punctures and a 3 cm curvilinear irregular flap laceration to the middle of her left cheek, this was repaired with 3 Steri-Strips, counseled on keeping the wound clean and dry and taking the prescribed antibiotics, following up with plastics at [facility] for possible revision and counseled on scar minimization techniques with topical creams and manual manipulation, stressed return criteria for any signs of infection. Findings not consistent with [id number] laceration, airway compromise. Disposition of Dog Bite of Face. Patient verbalized understanding of the plan and return to ED criteria and engaged in shared decision making. Medical Records Medical records reviewed: Yes I reviewed the patient's medical records. [facility] All Active Problems Dog bite of face (Acute) Adjustment disorder with depressed mood (Acute) Pt shared history of depression symptoms but unsure if she has ever been dx'd. Stress at home (Acute) Pt reports this is exacerbating depression symptoms. Anemia (Chronic) Loss of biological parent at younger than 18 years of age (Acute) PTSD (post-traumatic stress disorder) (Chronic) With depressive features and non-specific suicidal ideations; PTSD secondary to mom being sick with cancer for many years and then passing in 2014 when Deann was 9 years old Insomnia (Chronic) Moderate persistent asthma (Chronic) [place] [facility] Peanut allergy (Chronic) Eczema (Chronic) Medical History Retained products of conception following COVID Sprain of ulnar collateral ligament of metacarpophalangeal (MCP) joint of left thumb (08/23/19) Surgical History History of D&C 03/01/25 - Dr. Yeh -for retained POC, 1U PRBC Family History Mother Breast cancer at age 50 in 2014 Social History Smoking/Tobacco Use Status: Current every day Tobacco Type: e-cigarettes Smoking risk assessment performed?: Yes Alcohol Intake: never Drug use: Occasionally Substance use type: marijuana Housing: house Communication Needs: Corrective Lenses Education Level: high school Details: [employer] fall Pets and animals: Yes (2 dogs) Pets and animals: dog(s) Current gender identity: female Seatbelt use: always Do you feel safe at home: Yes ([employer]s) Do you feel safe in your relationship?: Yes Additional Social history: dad arley - works in [employer] 1/2 brother Ozzy (dads) in [place] 22 yrs older Coreen has adult daughter & grandchildren History History 2 Para 1 Hx # Term Pregnancies 1 Multiple births Hx # Pregnancies Ectopic pregnancies AB induced 1 Hx Number of Living Children 1 AB spontaneous
--- NOTE | 2025-07-07 10:34 | NUR.NOTE ---
Accessed Pt chart to read note about dog bite to face. I submitted a referral for the Pt to see [facility]. The initial referral was not submitted.
== END 2025-07-03 19:20 | disposition home or self-care (01) ==
PROVIDERS: Emergency Provider Physician Assistant; PCP Student in an Organized Health Care Education/Training Program
DX: S01.85XA Open bite of other part of head, initial encounter (principal); W54.0XXA Bitten by dog, initial encounter; Z23 Encounter for immunization
CPT/HCPCS: 99283; 99284; 90471; 12013; 90715